=== PATIENT | female | born 1985 | race Asian ===

== ENCOUNTER 2018-02-24 11:44 | Day surgery (SDC) | payer OTHER, SELFPAY ==
[2018-02-24 12:28] VITALS: BP 133/74; TEMP 97.9; BMI 30.5
[2018-02-24] MEDS ORDERED: Morphine 10 MG/ML VIAL IM SCH (13:30)
[2018-02-24] MEDS ORDERED: Ondansetron ODT 8 MG TAB SL SCH (13:30)
--- NOTE | 2018-02-24 21:24 | PRG ---
DATE OF SERVICE: 02/24/2018 PRIMARY OB: Rip Cueto MD CHIEF COMPLAINT: Abdominal pain. HISTORY OF PRESENT ILLNESS: The patient is a 33-year-old G2, P1 female with an intrauterine at 37 weeks, who is presenting with right lower pelvic pain. The patient reports that this pain has been on since yesterday evening. 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 She also reports she has right lower quadrant pain and pelvic pain that makes it difficult to get out of bed and to move at times. The patient denies leakage of fluid or vaginal bleeding. She reports that she has a scheduled for the . The patient denies any increased activity or exertion in the last few days. She is scheduled to see Dr. Cueto on Monday. PAST MEDICAL HISTORY: Negative. PAST SURGICAL HISTORY: She has had one prior . SOCIAL HISTORY: Denies drug, alcohol, or tobacco use. ALLERGIES: NO KNOWN DRUG ALLERGIES. MEDICATIONS: vitamins. OBSTETRIC LABS: Blood type is B positive. Antibody screen is negative, where she is rubella immune. RPR is nonreactive. Hepatitis B surface antigen is negative. Hepatitis panel is negative. HIV is negative. GC and chlamydia, negative. REVIEW OF SYSTEMS: Per HPI. PHYSICAL EXAMINATION: VITAL SIGNS: Blood pressure is 133/74, heart rate of 86, respiratory rate of 18 , temperature 97.8. GENERAL: She appears to be in no acute distress when sitting still. She is alert, oriented, cooperative, and pleasant to interact with. HEAD: Normocephalic and atraumatic. LUNGS: Clear to auscultation bilaterally. HEART: Regular rate and rhythm. ABDOMEN: Gravid. She has significant tenderness to her right lower pelvis and inguinal region with deviation of the uterus and palpation to that region. ABDOMEN: Has been soft to the whole evaluation. EXTREMITIES: Nontender and nonedematous. : Vulva is without masses, lesions, or erythema. She has significant pain to her pelvic floor muscles and to her right vaginal wall. Cervix is closed and very posterior with no presenting part palpable. heart tracing performed for abdominal pain, pelvic pain, and , baseline is noted to be in the 130s with moderate long-term variability, positive 15 x 15 accelerations and no decelerations. Tocometer did not show any contractions, this may show some irritability. ASSESSMENT AND PLAN: The patient is a 33-year-old female with an intrauterine at 37 weeks, here with musculoskeletal pain in . No evidence of labor. The patient has been given reassurance. Fetus is reassuring with a reactive NST. The patient after evaluation has been given the option of IV morphine for pain, temporary pain management. The patient accepted 10 mg of morphine IM with 8 mg of Zofran sublingually. The patient was discharged home, feeling much better , and was given term labor precautions. The patient was given instructions that she can take 2 Tylenol 3 times a day to assist with home pain as well as heat to the area. Job ID: [id number] MTDD
== END 2018-02-24 13:53 | disposition home or self-care (01) ==
LOC: L&D/OP 11:44
PROVIDERS: ATTEND Family Medicine
DX: O26.93 Pregnancy related conditions, unspecified, third trimester (principal); R10.2 Pelvic and perineal pain; Z3A.37 37 weeks gestation of pregnancy; Z79.899 Other long term (current) drug therapy
CPT/HCPCS: 96372; 99283; J2270

== ENCOUNTER 2018-03-06 22:33 | Inpatient (IN) | payer MEDICAID, OTHER, SELFPAY ==
[2018-03-06 23:05] VITALS: BMI 30.4
[2018-03-06] MEDS ORDERED: Ondansetron PF 4 MG/2 ML Vial IVP PRN (23:43)
[2018-03-06] MEDS ORDERED: Bicitra 30 ML UDCUP PO SCH (23:45)
[2018-03-06] MEDS ORDERED: CEFAZOLIN 2 GM/50 ML BAG IVPB SCH (23:45)
[2018-03-06] MEDS ORDERED: Lactated Ringer's 1,000 ML IV SCH ×2 (23:45)
[2018-03-07 00:04] LABS: Hemoglobin 10.1 g/dL (12.0-16.0); Mean Corpuscular HGB CONC 33.3 g/dL (32.0-36.0); Mean Corpuscular Hemoglobin 25.3 pg (27.0-31.0); Mean Corpuscular Volume 75.9 fL (78.0-98.0); Mean Platelet Volume 6.3 fL (7.4-10.4); Platelet Count 426 thou/uL (130-400); RBC Distribution Width 14.1 % (11.5-14.5); Red Blood Cell (RBC) Count 3.97 mill/uL (4.20-5.40); White Blood Cell (WBC) Count 12.1 thou/uL (4.8-10.8)
[2018-03-07] MEDS ORDERED: Morphine PF 1 MG/ML SYR ONE (00:06)
[2018-03-07] MEDS ORDERED: Ondansetron PF 4 MG/2 ML Vial ONE ×2 (00:24→14:49)
[2018-03-07] MEDS ORDERED: Oxytocin 10 UNITS/ML VIAL ONE (00:24)
[2018-03-07 00:36] LABS: Syphilis Antibody Nonreactive (Nonreactive); Syphilis Antibody Index 0.05 S/CO (<1.00 Non-Reactive)
[2018-03-07] MEDS ORDERED: Fentanyl 100 MCG/2 ML VIAL ONE ×2 (00:38→00:48)
[2018-03-07 00:40] LABS: HBSAg Index 0.23 S/CO (0-0.99); Hep B Surf Ag Non-Reactive S/CO (NonReactive)
[2018-03-07] MEDS ORDERED: Naloxone HCl 0.4 mg/ml Vial IVP PRN ×2 (01:10)
[2018-03-07] MEDS ORDERED: diphenhydrAMINE 50 MG/ML VIAL IVP PRN (01:10)
[2018-03-07] MEDS ORDERED: Naloxone HCl 0.4 mg/ml Vial IV PRN (01:10)
[2018-03-07] MEDS ORDERED: Ondansetron PF 4 MG/2 ML Vial IVP PRN ×2 (01:10→03:51)
[2018-03-07] MEDS ORDERED: Hydrocerin (Eucerin) Cream 120 gm Jar TOP PRN (01:10)
[2018-03-07] MEDS ORDERED: Promethazine HCl 25 MG SUPP PR PRN (01:10)
[2018-03-07] MEDS ORDERED: Promethazine HCl 25 MG/ML VIAL IM PRN (01:10)
[2018-03-07] MEDS ORDERED: Ketorolac Tromethamine 30 MG/ML VIAL IVP PRN (01:10)
[2018-03-07] MEDS ORDERED: Meperidine HCl/PF 25 MG/ML VIAL SLOW IVP PRN (01:11)
[2018-03-07] MEDS ORDERED: Ondansetron HCl/PF 4 MG/2 ML Vial IVP PRN (01:11)
[2018-03-07] MEDS ORDERED: L&D-Morphine 4 MG/ML VIAL SLOW IVP PRN (01:11)
[2018-03-07] MEDS ORDERED: Ketorolac Tromethamine 30 MG/ML VIAL IVP SCH (01:15)
[2018-03-07] MEDS ORDERED: Communication Order-Pharmacy FS SCH (01:15)
[2018-03-07] MEDS ORDERED: Ketorolac Tromethamine 30 MG/ML VIAL ONE (01:57)
[2018-03-07] MEDS ORDERED: Simethicone Chewable 80 MG TAB PO PRN (03:51)
[2018-03-07] MEDS ORDERED: Lanolin Ointment 7 GM TUBE TOP PRN (03:51)
[2018-03-07] MEDS ORDERED: Lactated Ringer's 1,000 ML IV SCH (03:51)
[2018-03-07] MEDS ORDERED: diphenhydrAMINE 25 MG CAP PO PRN (03:51)
[2018-03-07] MEDS ORDERED: NS / Oxytocin 40 units/1000ml 1,000 ML IV SCH (03:51)
[2018-03-07] MEDS ORDERED: Bisacodyl 10 MG SUPP PR PRN (03:51)
[2018-03-07] MEDS: Ferrous Sulfate 325 MG TAB PO SCH ×2 (09:35→19:50)
[2018-03-07] MEDS: Docusate Calcium (SURFAK) 240 MG CAP PO SCH ×2 (09:36→20:37)
[2018-03-07] MEDS: Prenatal Vitamin 1 TAB PO SCH (09:36)
[2018-03-07] MEDS ORDERED: HYDROcodone/Acetaminophen 5/325 mg Tablet PO PRN (13:15)
[2018-03-07] MEDS ORDERED: Meperidine HCl/PF 25 MG/ML VIAL IM PRN (13:15)
[2018-03-07] MEDS: HYDROcodone/Acetaminophen 5/325 mg Tablet PO PRN (14:04)
[2018-03-08] MEDS: Ibuprofen 800 MG TAB PO SCH ×3 (06:35→21:58)
[2018-03-08 06:52] LABS: Hemoglobin 8.1 g/dL (12.0-16.0); Mean Corpuscular HGB CONC 32.1 g/dL (32.0-36.0); Mean Corpuscular Hemoglobin 24.9 pg (27.0-31.0); Mean Corpuscular Volume 77.5 fL (78.0-98.0); Mean Platelet Volume 6.3 fL (7.4-10.4); Platelet Count 346 thou/uL (130-400); RBC Distribution Width 14.4 % (11.5-14.5); Red Blood Cell (RBC) Count 3.26 mill/uL (4.20-5.40); White Blood Cell (WBC) Count 10.5 thou/uL (4.8-10.8)
[2018-03-08] MEDS: Prenatal Vitamin 1 TAB PO SCH (08:29)
[2018-03-08] MEDS: Ferrous Sulfate 325 MG TAB PO SCH ×2 (08:29→17:23)
[2018-03-08] MEDS: Docusate Calcium (SURFAK) 240 MG CAP PO SCH ×2 (08:29→21:58)
[2018-03-08] MEDS: HYDROcodone/Acetaminophen 5/325 mg Tablet PO PRN ×2 (08:29→17:23)
--- NOTE | 2018-03-08 12:50 | PDOC.OPDEL ---
OB Operative/Delivery Note Delivery Dr/Surgeon: Rom Assist: Zoya Pre-Delivery Diagnosis: active labor, other (hx of prior C/S) Procedure/Post Delivery Dx: repeat low transverse CS Weeks gestation: 38 (38.4 wks) Anesthesia: spinal - Findings A Sex: male - 1 min: 9 - 5 min: 10 - Additional Findings/Plan Placenta delivered: manual removal findings: low transverse hysterotomy without extension Estimated blood loss: 520 mL Compilations/Other Findings: Date of Procedure: 03/07/2018 Resident Surgeon: Zoya Attending Surgeon: Rom Procedure: Repeat low transverse caesarean section Preoperative Diagnosis: 1)Term intrauterine 2)Onset of labor with planned C/S Postoperative Diagnosis: 1)Term intrauterine , delivered 2)rLTCS 3)Same as above Anesthesia: spinal Indications: The patient is a 33 year old G2,P1001 female at 38.4 weeks gestation who presented to L&D with onset of labor and planned C/S. Procedure in Detail: After risks, benefits, and alternatives were explained to the patient, she gave informed consent. Pre-operative antibiotics included Cefazolin 2 gram IV. The patient was taken to the operating room and spinal anesthesia was initiated. She was placed in the supine position with a left tilt and prepped and draped in usual sterile fashion. A Pfannenstiel incision was made with a scalpel and carried down to the level of the fascia which was sharply nicked. The fascial cut was extended bilaterally with Ramirez sissors. The inferior and superior edges of the cut fascial edges were elevated with Maik clamps and the underlying rectus muscles were sharply and bluntly dissected free. The recti were divided digitally and retracted manually. The peritoneum was entered bluntly and retracted manually. Bladder blade was placed. A low transverse score was made with the scalpel and the uterus was entered in the midline with the scalpel. Clear fluid was seen. The hysterotomy was extended manually. The was noted to be vertex and was easily delivered by fundal pressure. Mouth and nares were bulb suctioned. Cord clamped and cut and grossly normal male infant was handed to waiting nurse. Cord blood was obtained. Placenta was manually extracted, found to be intact with 3 vessel cord and discarded. The uterus was externalized and the endometrium was curetted with a dry lap. The bladder blade was replaced and the uterus was closed with a running locking 0-Vicryl x2. Following this hemostasis was noted. The abdomen was irrigated with saline and suctioned free of clots. The uterus was internalized and the hysterotomy was again noted to be hemostatic. seprafilm was placed on hysterotomy site. The fascia was closed with a running non-locking 0-PDS suture x2. The subcutaneous tissue was irrigated and there were no bleeders. Subcutaneous tissue approximated using 3- 0 plain gut. The skin was approximated with kelsey and a pressure dressing was placed. All counts were correct. The patient tolerated the procedure well and was taken to the recovery room in stable condition. Estimated Blood Loss: 520 ml Complications: None Specimens: Cord blood sent to lab for blood type Findings: Grossly normal male infant with apgars of 9 and 10. Grossly normal placenta with 3 vessel cord discarded. Drains: Vela to gravity draining clear urine Post delivery plan: routine recovery
[2018-03-09] MEDS: Ibuprofen 800 MG TAB PO SCH ×2 (05:59→13:24)
[2018-03-09 08:21] VITALS: BP 104/55; TEMP 97.6
[2018-03-09] MEDS: Prenatal Vitamin 1 TAB PO SCH (09:04)
[2018-03-09] MEDS: Docusate Calcium (SURFAK) 240 MG CAP PO SCH (09:04)
[2018-03-09] MEDS: Ferrous Sulfate 325 MG TAB PO SCH (09:04)
[2018-03-09] MEDS: HYDROcodone/Acetaminophen 5/325 mg Tablet PO PRN (13:23)
== END 2018-03-09 17:55 | disposition home or self-care (01) | DRG 788 ==
LOC: L&D/OP 22:33 → L&D 03-07 01:01 → 3SW 03-07 05:53
PROVIDERS: ADMIT Family Medicine; ATTEND Family Medicine
PROC: 10D00Z1 Extraction of Products of Conception, Low, Open Approach (ICD-10-PCS; principal; 2018-03-07)
DX: O34.211 Maternal care for low transverse scar from previous cesarean delivery (principal); Z3A.38 38 weeks gestation of pregnancy; Z37.0 Single live birth
CPT/HCPCS: 36415; 51702; 85027; 86780; 86850; 86900; 86901; 87340; 99285; J1885; J2274; J2405; J2590; J3010

== ENCOUNTER 2019-08-06 08:49 | Outpatient (CLI) | payer OTHER ==
--- NOTE | 2019-08-06 13:21 | ULT ---
OBSTETRICAL ULTRASOUND: 08/06/19 INDICATIONS: anatomy evaluation. FINDINGS: A single viable intrauterine is noted. Gestational age by ultrasound is 19 weeks, 2 days. BIOMETRY: BPD: 19 week, 4 day HC: 19 week, 3 day AC: 19 week, 4 day FL: 19 wee, 0 day EFW: 286 grams, 73rd percentile. Placenta: Anterior. Presentation: Vertex. Amniotic fluid: Within normal range. SUJIT recorded at 14.8 cm. Cervical length: 3.6 cm. Sex: Male. heart rate: 145 beats per minute. Anatomy: Intracranial contents, four chamber heart, stomach, kidneys, cord insertion, bladder, spine, lips/nos e, extremities and three vessel cord were all imaged. No abnormality identified. kidneys were s uboptimally imaged due to positioning. IMPRESSION: 19 week, 2 day gestational age by ultrasound. No abnormality identified. POS: AGW
== END 2019-08-06 08:50 | disposition home or self-care (01) ==
LOC: SCSULT 08:49
PROVIDERS: ATTEND Family Medicine
DX: O09.892 Supervision of other high risk pregnancies, second trimester (principal); Z3A.19 19 weeks gestation of pregnancy
CPT/HCPCS: 76805

== ENCOUNTER 2019-11-29 21:01 | Day surgery (SDC) | payer OTHER ==
[2019-11-29 21:27] VITALS: BP 127/82; TEMP 98.4; BMI 29.7
--- NOTE | 2019-11-29 22:01 | PDOC.FPROB ---
FMR OB H&P: HPI - History of Present Illness Chief Complaint: abdominal pain Indentification: 34 yo at 35.3 wga by LMP c/w 6.5 wk sono History of Present Illness: Patient here reports abdominal pain at random points across her abdomen starting 2 days ago. She also feels some discomfort and pain in her vagina intermittently. Pain worsens with movement, and improves with rest. Tylenol also helps her pain. She does not think the pain is contractions. Denies VB, LOF. Endorses FM. Has some constant white vaginal discharge which does not itch nor bother her. Primary Care Physician: Rom FMR OB H&P: Current - Care : 3 Para: 2001 Gestational age: 35.3 Due date: 12/31/2019 Dating Criteria: LMP c/w 6.5 wk sono Course/Complications: Anemia of on iron - OB Labs Blood type: B RH: positive Antibody Screen: negative HIV: negative RPR: negative HepBsAg: negative Rubella: immune Urine drug screen: negative Gonorrhea: unknown Chlamydia: unknown 1 hour gtt: 170, no follow up lab available GBS: unknown FMR OB H&P: History - Past Medical History PMH: Denies - OB History OB History: LTCS x2, first for failure to progress. Second c/s was repeat. - DIRECTOR OF GOLF History DIRECTOR OF GOLF History: Denies - Surgical History Sx History: None besides c-sections x2. - Social History Social History: Denies smoking, drinking, drugs. FMR OB H&P: Medications - Current Home Medications: Medication Instructions Recorded Confirmed Type No Known 11/29/19 11/29/19 History Allergies/Adverse Reactions: Allergies Allergy/AdvReac Type Severity Reaction Status Date / Time No Known Allergies Allergy Verified 11/29/19 21:28 FMR OB H&P: ROS - Review of Systems General: denies: fever/chills, fatigue Respiratory: denies: cough, shortness of breath Gastrointestinal: reports: abdominal pain. denies: nausea, vomiting Genitourinary (Female): reports: vaginal discharge. denies: dysuria, vaginal pain, vaginal bleeding, contractions Musculoskeletal: reports: pain Neurologic: denies: weakness, headache Integumentary: denies: itching, rash Hematologic/Lymphatic: denies: prolonged or excessive bleeding FMR OB H&P: Vital Signs - Maternal Vital signs: Vital Signs - First Documented Temp Pulse Resp BP Pulse Ox 98.4 F 88 20 127/82 98 11/29/19 21:23 11/29/19 21:23 11/29/19 21:23 11/29/19 21:23 11/29/19 21:23 - Heart Tones Baseline: 140 Variability: moderate Acceleration: present Deceleration: absent Colcord contractions every: none FMR OB H&P: Physical Exam - Physical Exam General: NAD, awake, alert and oriented HEENT: normocephalic and atraumatic, PERRLA, MMM, conjunctiva clear, no scleral icterus, grossly normal vision, grossly normal hearing Neck: supple, trachea midline, no LAD Heart: RRR, normal S1/S2 General: CTAB, no respiratory distress Abdomen: soft, gravid, non-tender Musculoskeletal: pulses present Neurological: no focal deficit Skin: no rash Lymphatic: no unusual bruising or bleeding Psychiatric: intact recent and remote memory, normal mood and affect - Pelvic Exam Estimated Weight: 6 lbs FMR OB H&P: A/P Disposition: discharge to home. strip reassuring. Discussion: Date/Time: 11/29/192157 34 yo at 35.3 wga by LMP c/w 6.5 wk sono: Musculoskeletal discomforts of - patient describes typical MSK pains - may continue tylenol - encouraged hydration and rest. - f/u w/ Dr. Cueto as scheduled next week. This H&P was discussed with Dr. Almazan, who agree with the above documentation and plan. Signature: Arron Naranjo MD PGY2 Addendum - Attending - Attending Attestation Date/Time: 11/30/19 0403 I personally evaluated the patient and discussed the management with Dr. Naranjo. I agree with the History, Examination, Assessment and Plan documented above.
[2019-11-29] MEDS ORDERED: hydrALAZINE 20 MG/ML VIAL SLOW IVP PRN (22:09)
== END 2019-11-29 22:07 | disposition home or self-care (01) ==
LOC: L&D/OP 21:01
PROVIDERS: ATTEND Family Medicine
DX: O26.893 Other specified pregnancy related conditions, third trimester (principal); R10.9 Unspecified abdominal pain; R10.2 Pelvic and perineal pain; O99.013 Anemia complicating pregnancy, third trimester; D64.9 Anemia, unspecified; O34.211 Maternal care for low transverse scar from previous cesarean delivery; Z3A.35 35 weeks gestation of pregnancy
CPT/HCPCS: 99282

== ENCOUNTER 2019-12-09 07:57 | Inpatient (IN) | payer MEDICAID, OTHER ==
[2019-12-09 09:01] LABS: Amnisure Test RUPTURE DETECTED (No Rupture)
[2019-12-09 09:02] LABS: Amnisure Internal Control QC ACCEPTABLE (ACCEPTABLE)
[2019-12-09] MEDS ORDERED: hydrALAZINE 20 MG/ML VIAL SLOW IVP PRN ×2 (09:16→15:42)
[2019-12-09] MEDS ORDERED: Ondansetron PF 4 MG/2 ML Vial IVP PRN ×3 (09:16→15:42)
[2019-12-09] MEDS ORDERED: Promethazine HCl 25 MG/ML VIAL IM PRN ×3 (09:16→15:42)
[2019-12-09] MEDS ORDERED: Bicitra 30 ML UDCUP PO SCH (09:30)
[2019-12-09] MEDS ORDERED: CEFAZOLIN 2 GM in Premix Bag 1 BAG IVPB SCH (09:30)
[2019-12-09] MEDS ORDERED: Azithromycin 500 MG in Sodium Chloride 0.9% 250 ML 250 ML IVPB SCH (09:30)
[2019-12-09] MEDS ORDERED: Lactated Ringer's 1,000 ML IV SCH (09:30)
[2019-12-09] MEDS ORDERED: AMPicillin 2 GM in Dextrose 5% in Water 100 ML IVPB SCH (09:30)
[2019-12-09 09:51] LABS: Hemoglobin 8.4 g/dL (12.0-16.0); Mean Corpuscular HGB CONC 31.8 g/dL (32.0-36.0); Mean Corpuscular Volume 69.2 fL (78.0-98.0); Mean Platelet Volume 6.8 fL (7.4-10.4); Platelet Count 449 thou/uL (130-400); Red Blood Cell (RBC) Count 3.79 mill/uL (4.20-5.40); White Blood Cell (WBC) Count 10.1 thou/uL (4.8-10.8)
[2019-12-09] MEDS ORDERED: AMPicillin 2 GM in Sodium Chloride 0.9% 100 ML IVPB SCH (10:00)
[2019-12-09 10:30] LABS: Hep B Surf Ag Non-Reactive S/CO (NonReactive); Syphilis Antibody Nonreactive (Nonreactive); Syphilis Antibody Index 0.04 S/CO (<1.00 Non-Reactive)
[2019-12-09 10:32] VITALS: BMI 31.4
[2019-12-09] MEDS ORDERED: Oxytocin 10 UNITS/ML VIAL ONE (10:32)
[2019-12-09] MEDS ORDERED: PHENYLEPHRINE-NS 100 MCG/ML 10 ML SYRINGE ONE (10:32)
[2019-12-09] MEDS ORDERED: ePHEDrine 50 MG/ML VIAL ONE (10:32)
[2019-12-09] MEDS ORDERED: Ketorolac Tromethamine 30 MG/ML VIAL ONE (10:32)
[2019-12-09] MEDS ORDERED: Ondansetron PF 4 MG/2 ML Vial ONE (10:32)
[2019-12-09] MEDS ORDERED: Naloxone HCl 0.4 mg/ml Vial IVP PRN ×2 (11:06)
[2019-12-09] MEDS ORDERED: L&D-Morphine 4 MG/ML VIAL SLOW IVP PRN (11:06)
[2019-12-09] MEDS ORDERED: Naloxone HCl 0.4 mg/ml Vial IV PRN (11:06)
[2019-12-09] MEDS ORDERED: Ondansetron HCl/PF 4 MG/2 ML Vial IVP PRN (11:06)
[2019-12-09] MEDS ORDERED: diphenhydrAMINE 50 MG/ML VIAL IVP PRN (11:06)
[2019-12-09] MEDS ORDERED: Promethazine HCl 25 MG SUPP PR PRN (11:06)
[2019-12-09] MEDS ORDERED: HYDROmorphone 2 MG/ML VIAL SLOW IVP PRN (11:06)
[2019-12-09] MEDS ORDERED: Meperidine HCl/PF 25 MG/ML VIAL SLOW IVP PRN (11:06)
[2019-12-09] MEDS ORDERED: Ketorolac Tromethamine 30 MG/ML VIAL IVP PRN (11:06)
[2019-12-09] MEDS ORDERED: Communication Order-Pharmacy FS SCH (11:15)
[2019-12-09] MEDS ORDERED: Ketorolac Tromethamine 30 MG/ML VIAL IVP SCH (11:15)
[2019-12-09] MEDS ORDERED: NS / Oxytocin 40 units/1000ml 1,000 ML ONE (14:44)
[2019-12-09] MEDS ORDERED: Lanolin Ointment 7 GM TUBE TOP PRN (15:42)
[2019-12-09] MEDS ORDERED: Adacel (T-DAP) 0.5 ML SYRINGE IM ONE (15:42)
[2019-12-09] MEDS ORDERED: Simethicone Chewable 80 MG TAB PO PRN (15:42)
[2019-12-09] MEDS ORDERED: diphenhydrAMINE 25 MG CAP PO PRN (15:42)
[2019-12-09] MEDS ORDERED: Bisacodyl 10 MG SUPP PR PRN (15:42)
[2019-12-09] MEDS ORDERED: NS / Oxytocin 40 units/1000ml 1,000 ML IV SCH (15:42)
[2019-12-09 16:21] LABS: SARS-CoV-2 MS2 Positive; SARS-CoV-2 N Gene Negative; SARS-CoV-2 S Gene Negative; SARS-CoV-2 by NAA Not Detected (NotDetected); SARS-CoV-2 orf1ab Negative
--- NOTE | 2019-12-09 18:16 | PDOC.OPDEL ---
OB Operative/Delivery Note Delivery Dr/Surgeon: Rom Assist: Gaurav Pre-Delivery Diagnosis: ruptured membrane, other (previous c/s) Procedure/Post Delivery Dx: repeat low transverse CS Weeks gestation: 36 (36.6) Anesthesia: spinal - Findings A Sex: male Weight: 3.139 kg - 1 min: 9 - 5 min: 9 - Additional Findings/Plan Placenta delivered: manual removal findings: low transverse hysterotomy without extension, normal uterus, normal tubes, normal ovaries Estimated blood loss: 404 Compilations/Other Findings: Date of Procedure: 12/09/19 Resident Surgeon: Gaurav Attending Surgeon: Rom Procedure: Repeat low transverse caesarean section Preoperative Diagnosis: 1)PPROM 2)Previous Postoperative Diagnosis: 1)rLTCS, delivered Anesthesia: spinal Indications: The patient is a 34 year old female at 36.6 weeks gestation who presented with PPROM with history of prior LCTS. Procedure in Detail: After risks, benefits, and alternatives were explained to the patient, she gave informed consent. Pre-operative antibiotics included Cefazolin 2 gram IV, 2g Ampicillin, and 500mg Azithromycin. The patient was taken to the operating room and spinal anesthesia was initiated. She was placed in the supine position with a left tilt and prepped and draped in usual sterile fashion. A Pfannenstiel incision was made with a scalpel over the previous scar and carried down to the level of the fascia which was sharply nicked. The fascial cut was extended bilaterally with Ramirez scissors. The inferior and superior edges of the cut fascial edges were elevated with Maik clamps and the underlying rectus muscles were sharply and bluntly dissected free. A moderate amount of scar tissue was encountered which required blunt and scar dissection. The recti were divided with sharp and blunt dissection and retracted manually. The peritoneum was entered sharply due to scar tissue and retracted manually. Bladder blade was placed. The rectus muscle and scar tissue layer was sharply extended left laterally to create more space for delivery. A low transverse score was made with a new, clean scalpel and the uterus was entered in the midline bluntly. The hysterotomy was extended manually. The infant was noted to be vertex and was easily delivered by fundal pressure @ 1157. Mouth and nares were bulb suctioned. Cord clamped and cut and grossly normal male was handed to waiting nurse. Cord blood was obtained. Placenta was manually extracted, found to be intact with 3 vessel cord and sent for pathology. The uterus was externalized and the endometrium was curetted with a dry lap. The bladder blade was replaced and the uterus was closed with a running locking #1 Monocryl. A small area of bleeding was noted at the right hysterotomy edge and hemostasis was achieved with a single figure of eight suture with #1 Monocryl. Following this hemostasis was noted. The abdomen was irrigated with saline and suctioned free of clots. Seprafilm was placed over the anterior aspect of the uterus. The uterus was internalized and the hysterotomy was again noted to be hemostatic. peritoneum was reapproximated with a running, non-locking 3.0 Vicry l. The rectus was reapproximated with a running, nonlocking 0 vicryl. The fascia was then closed with a running non-locking 1-PDS suture. The bovie electrocautery was used to achieve hemostatis of small areas of bleeding The subcutaneous tissue was irrigated and there were no bleeders. The subcutaneous tissue was reapproximated with interrupted vertical mattress sutures using 3-0 vicryl. The skin was approximated with kelsey and a pressure dressing was placed. All counts were correct x3. The patient tolerated the procedure well and was taken to the recovery room in stable condition. QBL: 404cc Complications: None Specimens: Cord blood sent to lab for blood type. Placenta sent for pathology. Findings: Grossly normal male with Apgars of 9 and 9. Grossly normal placenta with 3 vessel cord. Moderate scar tissue. Drains: Vela to gravity draining clear urine Post delivery plan: routine recovery
[2019-12-09] MEDS: Ketorolac Tromethamine 30 MG/ML VIAL IVP SCH ×2 (18:30→23:12)
[2019-12-09] MEDS: Ferrous Sulfate 325 MG TAB PO SCH (21:59)
[2019-12-09] MEDS ORDERED: Meperidine HCl/PF 25 MG/ML VIAL IM PRN (23:15)
[2019-12-10] MEDS ORDERED: Ketorolac Tromethamine 30 MG/ML VIAL ONE (05:17)
[2019-12-10] MEDS: Ketorolac Tromethamine 30 MG/ML VIAL IVP SCH (05:19)
[2019-12-10 06:35] LABS: Hemoglobin 7.2 g/dL (12.0-16.0); Mean Corpuscular HGB CONC 31.4 g/dL (32.0-36.0); Mean Platelet Volume 6.7 fL (7.4-10.4); Platelet Count 371 thou/uL (130-400); RBC Distribution Width 15.1 % (11.5-14.5); Red Blood Cell (RBC) Count 3.26 mill/uL (4.20-5.40); White Blood Cell (WBC) Count 8.3 thou/uL (4.8-10.8)
[2019-12-10] MEDS: Prenatal Vitamin 1 TAB PO SCH (07:46)
[2019-12-10] MEDS: Ferrous Sulfate 325 MG TAB PO SCH ×2 (07:47→20:16)
[2019-12-10] MEDS: HYDROcodone/Acetaminophen 5/325 mg Tablet PO PRN ×2 (07:49→20:16)
[2019-12-10] MEDS: Ibuprofen 800 MG TAB PO SCH ×2 (14:44→21:20)
[2019-12-11] MEDS: Ibuprofen 800 MG TAB PO SCH ×3 (05:54→21:38)
[2019-12-11] MEDS: Ferrous Sulfate 325 MG TAB PO SCH ×2 (08:29→21:38)
[2019-12-11] MEDS: Prenatal Vitamin 1 TAB PO SCH (08:29)
[2019-12-11] MEDS: HYDROcodone/Acetaminophen 5/325 mg Tablet PO PRN ×2 (08:32→14:28)
[2019-12-11] MEDS ORDERED: Milk Of Magnesia 30 ML UDCUP PO SCH (21:00)
[2019-12-12] MEDS: HYDROcodone/Acetaminophen 5/325 mg Tablet PO PRN ×2 (01:20→09:14)
[2019-12-12] MEDS: Ibuprofen 800 MG TAB PO SCH ×2 (06:17→14:37)
[2019-12-12 08:07] VITALS: BP 107/54; TEMP 98.6
[2019-12-12] MEDS: Ferrous Sulfate 325 MG TAB PO SCH (09:12)
[2019-12-12] MEDS: Prenatal Vitamin 1 TAB PO SCH (09:12)
== END 2019-12-12 18:50 | disposition home or self-care (01) | DRG 786 ==
LOC: L&D/OP 07:57 → L&D 09:16 → 3SW 15:23
PROVIDERS: ADMIT Family Medicine; ATTEND Family Medicine
PROC: 10D00Z1 Extraction of Products of Conception, Low, Open Approach (ICD-10-PCS; principal; 2019-12-09)
DX: O34.211 Maternal care for low transverse scar from previous cesarean delivery (principal); O60.14X0 Preterm labor third trimester with preterm delivery third trimester, not applicable or unspecified; Z20.828 Contact with and (suspected) exposure to other viral communicable diseases; Z3A.36 36 weeks gestation of pregnancy; Z37.0 Single live birth; O42.113 Preterm premature rupture of membranes, onset of labor more than 24 hours following rupture, third trimester; O69.81X0 Labor and delivery complicated by cord around neck, without compression, not applicable or unspecified
CPT/HCPCS: 36415; 51702; 84112; 85027; 86780; 86850; 86900; 86901; 87340; 87635; 88307; 99285; J0290; J1885; J2270; J2405; J3490; J7070; U0003